=== PATIENT | male | born 1955 | race Caucasian/White ===

== ENCOUNTER 2020-01-26 09:10 | Emergency (ER) | payer MEDICARE, BC ==
[2020-01-26] MEDS: Nitroglycerin 0.4 MG Tab.SL SL PRN ×2 (09:20→09:27)
[2020-01-26] MEDS: Sodium Chloride 0.9% 10 ML Syringe FLUSH PRN ×2 (09:20→10:10)
[2020-01-26] MEDS ORDERED: Nitroglycerin 2% Oint 1 GM UD Packet TOP ONE (09:54)
[2020-01-26] MEDS ORDERED: Aspirin 81 MG Tab.Chew PO ONE (09:54)
--- NOTE | 2020-01-26 09:56 | CR ---
[id number] RAD/RAD Chest PA or AP 1V EXAM: SINGLE VIEW CHEST. INDICATION: CHEST PAIN COMPARISON: NO PREVIOUS SIMILAR EXAM IS AVAILABLE FINDINGS: The lungs are clear The cardiomediastinal contour is moderately prominent IMPRESSION: NO PNEUMONIA OR EDEMA Jacob Gore MD 01/26/20 0940 Thank you for allowing us to participate in the care of your patient.
--- NOTE | 2020-01-26 09:56 | EDM.PDOC ---
ED HPI GENERAL MEDICAL PROBLEM - General Chief Complaint: Chest Pain Stated Complaint: chest pain Time Seen by Provider: 01/26/20 09:46 Source of Information: Reports: Patient History Limitations: Reports: No Limitations - History of Present Illness INITIAL COMMENTS - FREE TEXT/NARRATIVE: 64 YO WM presents to ER complaining of chest pain which began 8:15am today while running with his dog. Pt reports pain radiating to left arm with associated shortness of breath, nausea, diaphoresis. Pt denies any PMH of cardiac or pulmonary dz. Pt with history of syncope with unknown etiology. Pt reports mild improvement with nitro. Pt alert and oriented and in mild distress at this time. GCS-15 Onset: Today Onset Date: 01/26/20 Onset Time: 08:15 Location: Reports: Chest Quality: Reports: Ache Severity: Moderate Improves with: Reports: None Associated Symptoms: Reports: Chest Pain, Diaphoresis, Nausea/Vomiting, Shortness of Breath Left Chest Pain Score (Numeric/FACES): 7 - Related Data Allergies Allergy/AdvReac Type Severity Reaction Status Date / Time No Known Drug Allergies Allergy Cannot Verified 01/26/20 09:49 Remember Home Meds: Home Meds . [No Known Home Meds] 01/26/20 [History] ED ROS GENERAL - Review of Systems Review Of Systems: See Below Constitutional: Reports: No Symptoms HEENT: Reports: No Symptoms Respiratory: Reports: Shortness of Breath Cardiovascular: Reports: Chest Pain Endocrine: Reports: No Symptoms GI/Abdominal: Reports: Nausea : Reports: No Symptoms Musculoskeletal: Reports: No Symptoms Skin: Reports: No Symptoms Neurological: Reports: No Symptoms Psychiatric: Reports: No Symptoms Hematologic/Lymphatic: Reports: No Symptoms Immunologic: Reports: No Symptoms ED EXAM, GENERAL - Physical Exam Exam: See Below Exam Limited By: No Limitations General Appearance: Alert, WD/WN, No Apparent Distress Head: Atraumatic, Normocephalic Neck: Normal Inspection, Supple, Non-Tender, Full Range of Motion Respiratory/Chest: No Respiratory Distress, Lungs Clear, Normal Breath Sounds, No Accessory Muscle Use, Chest Non-Tender Cardiovascular: Normal Peripheral Pulses, Regular Rate, Rhythm, No Edema, No Gallop, No JVD, No Murmur, No Rub GI/Abdominal: Normal Bowel Sounds, Soft, Non-Tender, No Organomegaly, No Distention, No Abnormal Bruit, No Mass Back Exam: Normal Inspection, Full Range of Motion, NT Extremities: Normal Inspection, Normal Range of Motion, Non-Tender, Normal Capillary Refill, No Pedal Edema Neurological: Alert, Oriented, CN II-XII Intact, Normal Cognition, Normal Gait, Normal Reflexes, No Motor/Sensory Deficits Psychiatric: Normal Affect, Normal Mood Skin Exam: Warm, Dry, Intact, Normal Color, No Rash Lymphatic: No Adenopathy EKG INTERPRETATION Time: 09:21 Rhythm: NSR Rate (Beats/Min): 78 [place]: RAD-Right [place] Deviation QRS: RBBB ST-T: Elevated QT: Normal Comparison: NA - No Prior EKG Course - Vital Signs Last Recorded V/S: Last Vital Signs Temp 35.9 C L 01/26/20 09:15 Pulse 71 01/26/20 09:15 Resp 16 01/26/20 09:15 BP 149/85 H 01/26/20 09:15 Pulse Ox 100 01/26/20 09:44 - Orders/Labs/Meds Orders: Active Orders 24 hr Category Date Time Status Cardiac Monitoring [RC] . DIRECTED Care 01/26/20 09:44 Ordered EKG Documentation Completion [RC] ASDIRECTED Care 01/26/20 09:46 Ordered Oxygen Therapy [RC] ASDIRECTED Care 01/26/20 09:44 Ordered Peripheral IV Care [RC] . DIRECTED Care 01/26/20 09:45 Ordered INR,PT,PROTHROMBIN TIME [COAG] Stat Lab 01/26/20 09:44 Ordered PTT,PARTIAL THROMBOPLSTIN TIME [COAG] Stat Lab 01/26/20 09:44 Ordered Sodium Chloride 0.9% [Saline Flush] Med 01/26/20 09:44 Ordered 10 ml FLUSH Q8HR PRN Peripheral IV Insertion Adult [OM.PC] Routine Oth 01/26/20 09:44 Ordered EKG 12 Lead [EK] Stat Ther 01/26/20 09:46 Ordered Medication Orders Sodium Chloride (Saline Flush) 10 ml FLUSH Q8HR PRN PRN Reason: keep vein open Labs: Laboratory Tests 01/26/20 01/26/20 Range/Units 09:30 09:30 WBC 5.84 (5.00-10.00) 10^3/uL RBC 4.97 (4.50-6.00) 10^6/uL Hgb 14.5 (13.0-17.0) g/dL Hct 42.1 (40.0-52.0) % MCV 84.7 (82.0-92.0) fL MCH 29.2 (27.0-31.0) pg MCHC 34.4 (32.0-36.0) g/dL RDW 13.0 (11.5-14.5) % Plt Count 224 (150-400) 10^3/uL MPV 9.9 (7.4-10.4) fL Immature Gran % (Auto) 0.2 (0.0-5.0) % Neut % (Auto) 66.9 (50.0-70.0) % Lymph % (Auto) 21.7 (20.0-40.0) % [place] % (Auto) 9.8 H (2.0-8.0) % Eos % (Auto) 0.7 L (1.0-3.0) % Baso % (Auto) 0.7 (0.0-1.0) % Immature Gran # (Auto) 0.01 (0.00-0.50) 10^3/uL Neut # (Auto) 3.91 (2.50-7.00) 10^3/uL Lymph # (Auto) 1.27 (1.00-4.00) 10^3/uL [place] # (Auto) 0.57 (0.10-0.80) 10^3/uL Eos # (Auto) 0.04 L (0.10-0.30) 10^3/uL Baso # (Auto) 0.04 (0.00-0.10) 10^3/uL Sodium 141 (136-145) mmol/L Potassium 4.0 (3.3-5.3) mmol/L Chloride 105 (98-115) mmol/L Carbon Dioxide 26.2 (21.0-32.0) mmol/L Anion Gap 13.8 (5-15) mmol/L BUN 20 (6-25) mg/dL Creatinine 0.98 (0.51-1.17) mg/dL Est Cr Clr Drug Dosing 81.11 mL/min Estimated GFR (MDRD) > 60 mL/min Glucose 123 H (75 - 99) mg/dL Calcium 8.8 (8.7-10.3) mg/dL Total Bilirubin 0.3 (0.2-1.0) mg/dL AST 14 L (15-37) U/L ALT 28 (12-78) U/L Alkaline Phosphatase 69 (46-116) IU/L Creatine Kinase 183 (26-276) U/L CK-MB (CK-2) 2.00 (0.00-4.30) ng/mL Troponin I 0.06 (0.00-0.070) ng/mL Total Protein 7.4 (6.4-8.2) g/dL Albumin 3.70 (3.00-4.80) g/dL Meds: Medications Generic Name Dose Route Start Last Admin Trade Name Freq PRN Reason Stop Dose Admin Sodium Chloride 10 ml 01/26/20 09:44 Saline Flush FLUSH Q8HR PRN keep vein open Discontinued Medications Generic Name Dose Route Start Last Admin Trade Name Freq PRN Reason Stop Dose Admin Aspirin 324 mg 01/26/20 09:54 Aspirin PO 01/26/20 09:55 ONETIME ONE Morphine Sulfate 4 mg 01/26/20 10:01 Morphine IVPUSH 01/26/20 10:02 ONETIME ONE Nitroglycerin 1 gm 01/26/20 09:54 Nitro-Bid 2% TOP 01/26/20 09:55 ONETIME ONE - Radiology Interpretation Free Text/Narrative:: CXR- NAD Departure - Departure Time of Disposition: 10:04 Disposition: DC/Tfer to Acute Hospital 02 Reason for Transfer *Q: Primary PCI Indicated Condition: Critical Clinical Impression: Acute myocardial infarction Qualifiers: Myocardial infarction type: unspecified Forms: ED Department Discharge, Interfacility Transfer [facility] Sepsis Event Note - Evaluation Sepsis Screening Result: No Definite Risk - Focused Exam Vital Signs: Vital Signs Temp Pulse Resp BP Pulse Ox Pulse Ox 01/26/20 09:44 100 01/26/20 09:15 35.9 C L 71 16 149/85 H 93 L Date Exam was Performed: 01/26/20 Time Exam was Performed: 10:15 - My Orders Last 24 Hours: My Active Orders 01/26/20 09:44 Cardiac Monitoring [RC] . DIRECTED Oxygen Therapy [RC] ASDIRECTED INR,PT,PROTHROMBIN TIME [COAG] Stat PTT,PARTIAL THROMBOPLSTIN TIME [COAG] Stat Sodium Chloride 0.9% [Saline Flush] 10 ml FLUSH Q8HR PRN Peripheral IV Insertion Adult [OM.PC] Routine 01/26/20 09:45 Peripheral IV Care [RC] . DIRECTED 01/26/20 09:46 EKG Documentation Completion [RC] ASDIRECTED EKG 12 Lead [EK] Stat - Assessment/Plan Last 24 Hours: My Active Orders 01/26/20 09:44 Cardiac Monitoring [RC] . DIRECTED Oxygen Therapy [RC] ASDIRECTED INR,PT,PROTHROMBIN TIME [COAG] Stat PTT,PARTIAL THROMBOPLSTIN TIME [COAG] Stat Sodium Chloride 0.9% [Saline Flush] 10 ml FLUSH Q8HR PRN Peripheral IV Insertion Adult [OM.PC] Routine 01/26/20 09:45 Peripheral IV Care [RC] . DIRECTED 01/26/20 09:46 EKG Documentation Completion [RC] ASDIRECTED EKG 12 Lead [EK] Stat Assessment:: 1. Chest pain suspect AMI Plan: 1. transfer to [facility]- Dr Alvarez accepting 2. supportive care- nitro/asa/morphine 3. acute STEMI precautions
[2020-01-26] MEDS ORDERED: Morphine 2 MG/ML Syringe IVPUSH ONE (10:01)
[2020-01-26 10:09] LABS: ANION GAP 13.8 mmol/L (5-15); CHLORIDE,CL 105 mmol/L (98-115); SODIUM,NA 141 mmol/L (136-145)
[2020-01-26 10:22] LABS: PTT,PARTIAL THROMBOPLSTIN TIME 25.9 SEC (23.1-31.3)
== END 2020-01-26 10:15 ==
LOC: KA.ED 09:10
DX: I21.9 Acute myocardial infarction, unspecified (principal); I45.10 Unspecified right bundle-branch block
CPT/HCPCS: 36415; 71045; 80053; 82550; 82553; 84484; 85025; 85610; 85730; 93005; 96374; 99284; 99285-25; A9270-GY; J2270